=== PATIENT | female | born 1940 | race Caucasian/White ===

== ENCOUNTER 2020-12-04 16:04 | Inpatient (IN) ==
[2020-12-08] MEDS: *HR* OxyCODONE/APAP 10/325 TABLET PO PRN (14:56)
[2020-12-08] MEDS: cephALEXin 500 MG CAPSULE PO SCH ×2 (15:39→19:59)
[2020-12-08] MEDS: Gabapentin 400 MG CAPSULE PO SCH (18:00)
[2020-12-08] MEDS ORDERED: Bisacodyl 10 MG RECTAL SUPPOSITORY RC PRN (18:31)
[2020-12-08] MEDS: Melatonin 3 MG TABLET PO SCH (19:56)
[2020-12-08] MEDS: Lactobacillus 1 EACH CAP.SPRINK PO SCH (19:57)
[2020-12-08] MEDS: Apixaban 5 MG TABLET PO SCH (19:59)
[2020-12-08] MEDS: Sennosides/Docusate Sodium TABLET PO SCH (21:36)
[2020-12-08] MEDS: Budesonide/Formoterol 160/4.5 1 PUFF INH IH SCH (21:40)
[2020-12-09] MEDS: (Ezetimibe 10 MG Tablet) PO SCH (09:34)
[2020-12-09] MEDS: Budesonide/Formoterol 160/4.5 1 PUFF INH IH SCH ×2 (09:55→20:19)
[2020-12-09] MEDS: Lactobacillus 1 EACH CAP.SPRINK PO SCH ×2 (09:58→20:50)
[2020-12-09] MEDS: *HR* SitaGLIPtin 25 MG TABLET PO SCH (09:58)
[2020-12-09] MEDS: Sennosides/Docusate Sodium TABLET PO SCH ×2 (09:58→20:51)
[2020-12-09] MEDS: Gabapentin 400 MG CAPSULE PO SCH ×2 (09:58→19:20)
[2020-12-09] MEDS: Loratadine 10 MG TABLET PO SCH (09:59)
[2020-12-09] MEDS: Furosemide 20 MG TABLET PO SCH (09:59)
[2020-12-09] MEDS: Apixaban 5 MG TABLET PO SCH ×2 (09:59→20:49)
[2020-12-09] MEDS: cephALEXin 500 MG CAPSULE PO SCH ×3 (09:59→20:49)
[2020-12-09] MEDS: *HR* Glimepiride 4 MG TABLET PO SCH (10:01)
[2020-12-09] MEDS: *HR* OxyCODONE/APAP 10/325 TABLET PO PRN ×2 (13:35→20:49)
[2020-12-09] MEDS: Melatonin 3 MG TABLET PO SCH (20:50)
[2020-12-10 07:11] LABS: Hemoglobin 7.5 g/dL (11.5-15.4); Mean Corpuscular Hemoglobin 28.3 pg (28.0-33.3); Mean Corpuscular Volume 94.3 fL (83.0-100.0); Mean Platelet Volume 10.2 fL (9.4-12.4); Platelet Count 267 K/mcL (140-400); Red Blood Count 2.65 M/mcL (3.82-4.97); Red Cell Distribution Width 16.1 % (11.5-14.5); White Blood Count 4.8 K/mcL (4.3-11.1)
[2020-12-10 07:33] LABS: Calcium 8.4 mg/dL (8.6-10.3); Potassium 3.4 mEq/L (3.5-5.1)
[2020-12-10] MEDS: Furosemide 20 MG TABLET PO SCH (07:56)
[2020-12-10] MEDS: Sennosides/Docusate Sodium TABLET PO SCH ×2 (07:56→19:56)
[2020-12-10] MEDS: Gabapentin 400 MG CAPSULE PO SCH ×2 (07:56→16:09)
[2020-12-10] MEDS: Lactobacillus 1 EACH CAP.SPRINK PO SCH ×2 (07:57→19:57)
[2020-12-10] MEDS: Loratadine 10 MG TABLET PO SCH (07:57)
[2020-12-10] MEDS: *HR* Glimepiride 4 MG TABLET PO SCH (07:57)
[2020-12-10] MEDS: Apixaban 5 MG TABLET PO SCH ×2 (07:57→19:57)
[2020-12-10] MEDS: cephALEXin 500 MG CAPSULE PO SCH ×3 (07:57→19:57)
[2020-12-10] MEDS: *HR* SitaGLIPtin 25 MG TABLET PO SCH (07:57)
[2020-12-10] MEDS: (Ezetimibe 10 MG Tablet) PO SCH (07:58)
[2020-12-10] MEDS: *HR* OxyCODONE/APAP 10/325 TABLET PO PRN ×2 (08:02→16:09)
[2020-12-10] MEDS: Budesonide/Formoterol 160/4.5 1 PUFF INH IH SCH ×2 (09:52→21:11)
[2020-12-10] MEDS: Melatonin 3 MG TABLET PO SCH (19:56)
[2020-12-11] MEDS: Furosemide 20 MG TABLET PO SCH (08:10)
[2020-12-11] MEDS: *HR* SitaGLIPtin 25 MG TABLET PO SCH (08:10)
[2020-12-11] MEDS: cephALEXin 500 MG CAPSULE PO SCH ×3 (08:10→20:17)
[2020-12-11] MEDS: Apixaban 5 MG TABLET PO SCH ×2 (08:10→20:16)
[2020-12-11] MEDS: Sennosides/Docusate Sodium TABLET PO SCH ×2 (08:11→20:16)
[2020-12-11] MEDS: *HR* OxyCODONE/APAP 10/325 TABLET PO PRN ×2 (08:12→14:17)
[2020-12-11] MEDS: Gabapentin 400 MG CAPSULE PO SCH ×2 (08:12→17:35)
[2020-12-11] MEDS: Loratadine 10 MG TABLET PO SCH (08:13)
[2020-12-11] MEDS: Lactobacillus 1 EACH CAP.SPRINK PO SCH ×2 (08:13→20:16)
[2020-12-11] MEDS: (Ezetimibe 10 MG Tablet) PO SCH (08:24)
[2020-12-11] MEDS: *HR* Glimepiride 4 MG TABLET PO SCH (08:28)
[2020-12-11] MEDS: Budesonide/Formoterol 160/4.5 1 PUFF INH IH SCH ×2 (10:09→22:32)
[2020-12-11] MEDS: Melatonin 3 MG TABLET PO SCH (20:17)
[2020-12-12] MEDS: *HR* OxyCODONE/APAP 10/325 TABLET PO PRN ×2 (05:26→14:19)
[2020-12-12] MEDS: cephALEXin 500 MG CAPSULE PO SCH ×3 (07:57→19:45)
[2020-12-12] MEDS: Sennosides/Docusate Sodium TABLET PO SCH ×2 (07:57→19:46)
[2020-12-12] MEDS: Lactobacillus 1 EACH CAP.SPRINK PO SCH ×2 (07:57→19:46)
[2020-12-12] MEDS: Furosemide 20 MG TABLET PO SCH (07:58)
[2020-12-12] MEDS: Gabapentin 400 MG CAPSULE PO SCH ×2 (07:59→18:32)
[2020-12-12] MEDS: Apixaban 5 MG TABLET PO SCH ×2 (08:00→19:47)
[2020-12-12] MEDS: Loratadine 10 MG TABLET PO SCH (08:00)
[2020-12-12] MEDS: *HR* SitaGLIPtin 25 MG TABLET PO SCH (08:00)
[2020-12-12] MEDS: *HR* Glimepiride 4 MG TABLET PO SCH (08:06)
[2020-12-12] MEDS: Budesonide/Formoterol 160/4.5 1 PUFF INH IH SCH ×2 (09:59→22:01)
[2020-12-12] MEDS: (Ezetimibe 10 MG Tablet) PO SCH (11:29)
[2020-12-12] MEDS: Melatonin 3 MG TABLET PO SCH (19:45)
[2020-12-13] MEDS: Sennosides/Docusate Sodium TABLET PO SCH ×2 (08:21→20:35)
[2020-12-13] MEDS: Lactobacillus 1 EACH CAP.SPRINK PO SCH ×2 (08:21→20:35)
[2020-12-13] MEDS: Apixaban 5 MG TABLET PO SCH ×2 (08:23→20:34)
[2020-12-13] MEDS: *HR* SitaGLIPtin 25 MG TABLET PO SCH (08:23)
[2020-12-13] MEDS: cephALEXin 500 MG CAPSULE PO SCH ×3 (08:24→20:37)
[2020-12-13] MEDS: Furosemide 20 MG TABLET PO SCH (08:24)
[2020-12-13] MEDS: Loratadine 10 MG TABLET PO SCH (08:25)
[2020-12-13] MEDS: Gabapentin 400 MG CAPSULE PO SCH ×2 (08:25→17:47)
[2020-12-13] MEDS: *HR* Glimepiride 4 MG TABLET PO SCH (08:26)
[2020-12-13] MEDS: (Ezetimibe 10 MG Tablet) PO SCH (08:26)
[2020-12-13] MEDS: *HR* OxyCODONE/APAP 10/325 TABLET PO PRN (08:37)
[2020-12-13 09:15] LABS: Hematocrit 26.1 % (35.3-44.9); Hemoglobin 7.8 g/dL (11.5-15.4); Mean Corpuscular HGB Conc 29.9 g/dL (31.6-35.5); Mean Corpuscular Hemoglobin 28.3 pg (28.0-33.3); Mean Corpuscular Volume 94.6 fL (83.0-100.0); Mean Platelet Volume 9.9 fL (9.4-12.4); Platelet Count 312 K/mcL (140-400); Red Blood Count 2.76 M/mcL (3.82-4.97)
[2020-12-13] MEDS: Budesonide/Formoterol 160/4.5 1 PUFF INH IH SCH ×2 (10:08→21:43)
[2020-12-13] MEDS: Melatonin 3 MG TABLET PO SCH (20:36)
[2020-12-13] MEDS: Acetaminophen 325 MG TABLET PO PRN (21:26)
[2020-12-14] MEDS: Apixaban 5 MG TABLET PO SCH ×2 (09:48→20:12)
[2020-12-14] MEDS: Gabapentin 400 MG CAPSULE PO SCH ×2 (09:48→17:20)
[2020-12-14] MEDS: Furosemide 20 MG TABLET PO SCH (09:50)
[2020-12-14] MEDS: Loratadine 10 MG TABLET PO SCH (09:50)
[2020-12-14] MEDS: Sennosides/Docusate Sodium TABLET PO SCH ×2 (09:50→20:11)
[2020-12-14] MEDS: cephALEXin 500 MG CAPSULE PO SCH ×3 (09:51→20:10)
[2020-12-14] MEDS: *HR* SitaGLIPtin 25 MG TABLET PO SCH (09:51)
[2020-12-14] MEDS: Lactobacillus 1 EACH CAP.SPRINK PO SCH ×2 (09:51→20:13)
[2020-12-14] MEDS: *HR* OxyCODONE/APAP 10/325 TABLET PO PRN ×2 (10:07→20:10)
[2020-12-14] MEDS: Budesonide/Formoterol 160/4.5 1 PUFF INH IH SCH ×2 (10:11→21:53)
[2020-12-14] MEDS: *HR* Glimepiride 4 MG TABLET PO SCH (10:16)
[2020-12-14] MEDS: (Ezetimibe 10 MG Tablet) PO SCH (10:16)
[2020-12-14] MEDS: Melatonin 3 MG TABLET PO SCH (20:11)
[2020-12-15] MEDS: Gabapentin 400 MG CAPSULE PO SCH ×2 (07:59→16:49)
[2020-12-15] MEDS: cephALEXin 500 MG CAPSULE PO SCH ×3 (08:00→21:24)
[2020-12-15] MEDS: Lactobacillus 1 EACH CAP.SPRINK PO SCH ×2 (08:00→21:25)
[2020-12-15] MEDS: Furosemide 20 MG TABLET PO SCH (08:00)
[2020-12-15] MEDS: Loratadine 10 MG TABLET PO SCH (08:00)
[2020-12-15] MEDS: Apixaban 5 MG TABLET PO SCH ×2 (08:00→21:25)
[2020-12-15] MEDS: *HR* SitaGLIPtin 25 MG TABLET PO SCH ×2 (08:00→09:06)
[2020-12-15] MEDS: Sennosides/Docusate Sodium TABLET PO SCH ×2 (08:01→21:24)
[2020-12-15] MEDS: (Ezetimibe 10 MG Tablet) PO SCH (08:04)
[2020-12-15] MEDS: *HR* Glimepiride 4 MG TABLET PO SCH (09:06)
[2020-12-15] MEDS: Budesonide/Formoterol 160/4.5 1 PUFF INH IH SCH ×2 (09:41→20:16)
[2020-12-15] MEDS ORDERED: MOM Conc 10 ML UD.LIQ PO PRN (12:12)
[2020-12-15] MEDS: *HR* OxyCODONE/APAP 10/325 TABLET PO PRN ×2 (14:42→21:23)
[2020-12-15] MEDS: Melatonin 3 MG TABLET PO SCH (21:23)
[2020-12-16] MEDS: Sennosides/Docusate Sodium TABLET PO SCH ×2 (08:21→19:56)
[2020-12-16] MEDS: cephALEXin 500 MG CAPSULE PO SCH ×3 (08:21→19:54)
[2020-12-16] MEDS: Gabapentin 400 MG CAPSULE PO SCH ×2 (08:22→18:14)
[2020-12-16] MEDS: Apixaban 5 MG TABLET PO SCH ×2 (08:22→19:55)
[2020-12-16] MEDS: Loratadine 10 MG TABLET PO SCH (08:22)
[2020-12-16] MEDS: Furosemide 20 MG TABLET PO SCH (08:23)
[2020-12-16] MEDS: Lactobacillus 1 EACH CAP.SPRINK PO SCH ×2 (08:23→19:54)
[2020-12-16] MEDS: *HR* SitaGLIPtin 25 MG TABLET PO SCH (09:59)
[2020-12-16] MEDS: *HR* Glimepiride 4 MG TABLET PO SCH (09:59)
[2020-12-16] MEDS: Acetaminophen 325 MG TABLET PO PRN (10:04)
[2020-12-16] MEDS: (Ezetimibe 10 MG Tablet) PO SCH (10:06)
[2020-12-16] MEDS: Budesonide/Formoterol 160/4.5 1 PUFF INH IH SCH ×2 (10:28→20:28)
[2020-12-16] MEDS: *HR* OxyCODONE/APAP 10/325 TABLET PO PRN ×2 (15:28→21:28)
[2020-12-16] MEDS: Melatonin 3 MG TABLET PO SCH (19:55)
[2020-12-17] MEDS: Sennosides/Docusate Sodium TABLET PO SCH ×2 (08:16→19:57)
[2020-12-17] MEDS: cephALEXin 500 MG CAPSULE PO SCH ×3 (08:17→19:58)
[2020-12-17] MEDS: Apixaban 5 MG TABLET PO SCH ×2 (08:17→19:54)
[2020-12-17] MEDS: *HR* SitaGLIPtin 25 MG TABLET PO SCH (08:17)
[2020-12-17] MEDS: Gabapentin 400 MG CAPSULE PO SCH ×2 (08:17→17:23)
[2020-12-17] MEDS: Loratadine 10 MG TABLET PO SCH (08:18)
[2020-12-17] MEDS: (Ezetimibe 10 MG Tablet) PO SCH (08:19)
[2020-12-17] MEDS: Lactobacillus 1 EACH CAP.SPRINK PO SCH ×2 (08:19→19:58)
[2020-12-17] MEDS: Furosemide 20 MG TABLET PO SCH (08:20)
[2020-12-17] MEDS: Budesonide/Formoterol 160/4.5 1 PUFF INH IH SCH ×2 (12:30→23:04)
[2020-12-17] MEDS: *HR* OxyCODONE/APAP 10/325 TABLET PO PRN (16:37)
[2020-12-17] MEDS: *HR* Glimepiride 4 MG TABLET PO SCH (18:11)
[2020-12-17] MEDS: Melatonin 3 MG TABLET PO SCH (19:56)
[2020-12-18 07:27] LABS: Hematocrit 27.5 % (35.3-44.9); Hemoglobin 8.1 g/dL (11.5-15.4); Mean Corpuscular HGB Conc 29.5 g/dL (31.6-35.5); Mean Corpuscular Hemoglobin 28.5 pg (28.0-33.3); Mean Corpuscular Volume 96.8 fL (83.0-100.0); Mean Platelet Volume 9.5 fL (9.4-12.4); Platelet Count 263 K/mcL (140-400); Red Blood Count 2.84 M/mcL (3.82-4.97); Red Cell Distribution Width 16.3 % (11.5-14.5); White Blood Count 3.4 K/mcL (4.3-11.1)
[2020-12-18 07:49] LABS: Calcium 8.3 mg/dL (8.6-10.3); Potassium 4.1 mEq/L (3.5-5.1)
[2020-12-18] MEDS: Sennosides/Docusate Sodium TABLET PO SCH ×2 (08:10→19:52)
[2020-12-18] MEDS: Gabapentin 400 MG CAPSULE PO SCH ×2 (08:10→17:15)
[2020-12-18] MEDS: Lactobacillus 1 EACH CAP.SPRINK PO SCH ×2 (08:10→19:51)
[2020-12-18] MEDS: *HR* SitaGLIPtin 25 MG TABLET PO SCH (08:11)
[2020-12-18] MEDS: Apixaban 5 MG TABLET PO SCH ×2 (08:11→19:51)
[2020-12-18] MEDS: Loratadine 10 MG TABLET PO SCH (08:12)
[2020-12-18] MEDS: cephALEXin 500 MG CAPSULE PO SCH ×3 (08:12→19:51)
[2020-12-18] MEDS: Furosemide 20 MG TABLET PO SCH (08:12)
[2020-12-18] MEDS: (Ezetimibe 10 MG Tablet) PO SCH (08:14)
[2020-12-18] MEDS: *HR* OxyCODONE/APAP 10/325 TABLET PO PRN ×3 (08:19→22:04)
[2020-12-18] MEDS: Budesonide/Formoterol 160/4.5 1 PUFF INH IH SCH ×2 (09:55→22:19)
[2020-12-18] MEDS: Melatonin 3 MG TABLET PO SCH (19:52)
[2020-12-19] MEDS: Apixaban 5 MG TABLET PO SCH ×2 (08:33→19:46)
[2020-12-19] MEDS: Gabapentin 400 MG CAPSULE PO SCH ×2 (08:33→17:21)
[2020-12-19] MEDS: cephALEXin 500 MG CAPSULE PO SCH ×3 (08:33→19:47)
[2020-12-19] MEDS: Furosemide 20 MG TABLET PO SCH (08:34)
[2020-12-19] MEDS: Lactobacillus 1 EACH CAP.SPRINK PO SCH ×2 (08:34→19:47)
[2020-12-19] MEDS: Sennosides/Docusate Sodium TABLET PO SCH ×2 (08:34→19:47)
[2020-12-19] MEDS: *HR* SitaGLIPtin 25 MG TABLET PO SCH (08:34)
[2020-12-19] MEDS: Loratadine 10 MG TABLET PO SCH (08:35)
[2020-12-19] MEDS: (Ezetimibe 10 MG Tablet) PO SCH (08:35)
[2020-12-19] MEDS: *HR* OxyCODONE/APAP 10/325 TABLET PO PRN ×2 (08:48→19:48)
[2020-12-19] MEDS: Budesonide/Formoterol 160/4.5 1 PUFF INH IH SCH ×2 (10:06→20:26)
[2020-12-19] MEDS: Acetaminophen 325 MG TABLET PO PRN (12:47)
[2020-12-19] MEDS: Melatonin 3 MG TABLET PO SCH (19:47)
[2020-12-20] MEDS: Sennosides/Docusate Sodium TABLET PO SCH ×2 (08:54→19:59)
[2020-12-20] MEDS: Gabapentin 400 MG CAPSULE PO SCH ×2 (08:55→17:05)
[2020-12-20] MEDS: Apixaban 5 MG TABLET PO SCH ×2 (08:55→19:59)
[2020-12-20] MEDS: *HR* SitaGLIPtin 25 MG TABLET PO SCH (08:56)
[2020-12-20] MEDS: Loratadine 10 MG TABLET PO SCH (08:56)
[2020-12-20] MEDS: cephALEXin 500 MG CAPSULE PO SCH ×3 (08:56→19:58)
[2020-12-20] MEDS: Lactobacillus 1 EACH CAP.SPRINK PO SCH ×2 (08:56→19:58)
[2020-12-20] MEDS: Furosemide 20 MG TABLET PO SCH (08:58)
[2020-12-20] MEDS: (Ezetimibe 10 MG Tablet) PO SCH (09:00)
[2020-12-20] MEDS: *HR* OxyCODONE/APAP 10/325 TABLET PO PRN ×2 (09:03→18:47)
[2020-12-20] MEDS: Budesonide/Formoterol 160/4.5 1 PUFF INH IH SCH ×2 (10:21→20:43)
[2020-12-20] MEDS: Melatonin 3 MG TABLET PO SCH (19:58)
[2020-12-21] MEDS: Apixaban 5 MG TABLET PO SCH ×2 (08:39→19:33)
[2020-12-21] MEDS: cephALEXin 500 MG CAPSULE PO SCH ×3 (08:39→19:33)
[2020-12-21] MEDS: Lactobacillus 1 EACH CAP.SPRINK PO SCH ×2 (08:39→19:33)
[2020-12-21] MEDS: Gabapentin 400 MG CAPSULE PO SCH ×2 (08:39→17:01)
[2020-12-21] MEDS: Loratadine 10 MG TABLET PO SCH (08:39)
[2020-12-21] MEDS: *HR* SitaGLIPtin 25 MG TABLET PO SCH (08:39)
[2020-12-21] MEDS: Furosemide 20 MG TABLET PO SCH (08:40)
[2020-12-21] MEDS: Sennosides/Docusate Sodium TABLET PO SCH ×2 (08:40→19:33)
[2020-12-21] MEDS: (Ezetimibe 10 MG Tablet) PO SCH (08:40)
[2020-12-21] MEDS: *HR* OxyCODONE/APAP 10/325 TABLET PO PRN ×3 (08:47→22:15)
[2020-12-21] MEDS: Budesonide/Formoterol 160/4.5 1 PUFF INH IH SCH ×2 (10:25→20:36)
[2020-12-21] MEDS: Melatonin 3 MG TABLET PO SCH (19:33)
[2020-12-22] MEDS: Loratadine 10 MG TABLET PO SCH (08:55)
[2020-12-22] MEDS: Apixaban 5 MG TABLET PO SCH ×2 (08:56→20:31)
[2020-12-22] MEDS: *HR* OxyCODONE/APAP 10/325 TABLET PO PRN ×2 (08:56→15:22)
[2020-12-22] MEDS: *HR* SitaGLIPtin 25 MG TABLET PO SCH (08:56)
[2020-12-22] MEDS: Sennosides/Docusate Sodium TABLET PO SCH ×2 (08:56→20:29)
[2020-12-22] MEDS: Furosemide 20 MG TABLET PO SCH (08:57)
[2020-12-22] MEDS: Gabapentin 400 MG CAPSULE PO SCH ×2 (08:57→17:10)
[2020-12-22] MEDS: cephALEXin 500 MG CAPSULE PO SCH ×2 (08:58→15:22)
[2020-12-22] MEDS: Lactobacillus 1 EACH CAP.SPRINK PO SCH ×2 (08:58→20:30)
[2020-12-22] MEDS: (Ezetimibe 10 MG Tablet) PO SCH (08:59)
[2020-12-22] MEDS: Budesonide/Formoterol 160/4.5 1 PUFF INH IH SCH ×2 (10:55→21:47)
[2020-12-22] MEDS: Melatonin 3 MG TABLET PO SCH (20:30)
[2020-12-23 07:27] LABS: Eosinophils # 0.2 K/mcL (0.0-0.6); Eosinophils % 5.3 %; Hematocrit 28.7 % (35.3-44.9); Hemoglobin 8.4 g/dL (11.5-15.4); Immature Granulocytes % 0.3 % (0-4); Lymphocytes # 0.7 K/mcL (0.6-4.6); Lymphocytes % 23.5 %; Mean Corpuscular HGB Conc 29.3 g/dL (31.6-35.5); Mean Corpuscular Hemoglobin 28.5 pg (28.0-33.3); Mean Corpuscular Volume 97.3 fL (83.0-100.0); Mean Platelet Volume 10.5 fL (9.4-12.4); Monocytes # 0.3 K/mcL (0.0-1.3); Monocytes % 9.3 %; Neutrophils # 1.8 K/mcL (1.6-8.9); Platelet Count 214 K/mcL (140-400); Red Blood Count 2.95 M/mcL (3.82-4.97); Red Cell Distribution Width 17.7 % (11.5-14.5); Segmented Neutrophils % 60.6 %
[2020-12-23] MEDS: Lactobacillus 1 EACH CAP.SPRINK PO SCH ×2 (09:03→19:56)
[2020-12-23] MEDS: Loratadine 10 MG TABLET PO SCH (09:03)
[2020-12-23] MEDS: Sennosides/Docusate Sodium TABLET PO SCH ×2 (09:04→19:56)
[2020-12-23] MEDS: Gabapentin 400 MG CAPSULE PO SCH ×2 (09:04→17:22)
[2020-12-23] MEDS: *HR* SitaGLIPtin 25 MG TABLET PO SCH (09:04)
[2020-12-23] MEDS: (Ezetimibe 10 MG Tablet) PO SCH (09:05)
[2020-12-23] MEDS: Furosemide 20 MG TABLET PO SCH (09:05)
[2020-12-23] MEDS: Apixaban 5 MG TABLET PO SCH ×2 (09:05→19:56)
[2020-12-23] MEDS: *HR* OxyCODONE/APAP 10/325 TABLET PO PRN ×2 (09:05→19:55)
[2020-12-23] MEDS: Budesonide/Formoterol 160/4.5 1 PUFF INH IH SCH ×2 (09:53→21:27)
[2020-12-23] MEDS: Melatonin 3 MG TABLET PO SCH (19:56)
[2020-12-24] MEDS: Sennosides/Docusate Sodium TABLET PO SCH ×2 (08:24→20:55)
[2020-12-24] MEDS: Lactobacillus 1 EACH CAP.SPRINK PO SCH ×2 (08:24→20:55)
[2020-12-24] MEDS: Furosemide 20 MG TABLET PO SCH (08:26)
[2020-12-24] MEDS: Gabapentin 400 MG CAPSULE PO SCH ×2 (08:26→17:12)
[2020-12-24] MEDS: *HR* SitaGLIPtin 25 MG TABLET PO SCH (08:26)
[2020-12-24] MEDS: Apixaban 5 MG TABLET PO SCH ×2 (08:27→20:57)
[2020-12-24] MEDS: Loratadine 10 MG TABLET PO SCH (08:27)
[2020-12-24] MEDS: (Ezetimibe 10 MG Tablet) PO SCH (08:28)
[2020-12-24] MEDS: *HR* OxyCODONE/APAP 10/325 TABLET PO PRN ×3 (08:38→20:56)
[2020-12-24] MEDS: Budesonide/Formoterol 160/4.5 1 PUFF INH IH SCH ×2 (09:48→20:50)
[2020-12-24] MEDS: Acetaminophen 325 MG TABLET PO PRN (17:13)
[2020-12-24] MEDS: Melatonin 3 MG TABLET PO SCH (20:56)
[2020-12-25] MEDS: *HR* SitaGLIPtin 25 MG TABLET PO SCH (08:01)
[2020-12-25] MEDS: Loratadine 10 MG TABLET PO SCH (08:01)
[2020-12-25] MEDS: Lactobacillus 1 EACH CAP.SPRINK PO SCH ×2 (08:01→19:42)
[2020-12-25] MEDS: Furosemide 20 MG TABLET PO SCH (08:01)
[2020-12-25] MEDS: Sennosides/Docusate Sodium TABLET PO SCH ×2 (08:01→19:43)
[2020-12-25] MEDS: Apixaban 5 MG TABLET PO SCH ×2 (08:02→19:43)
[2020-12-25] MEDS: Gabapentin 400 MG CAPSULE PO SCH ×2 (08:03→17:17)
[2020-12-25] MEDS: (Ezetimibe 10 MG Tablet) PO SCH (08:10)
[2020-12-25] MEDS: Budesonide/Formoterol 160/4.5 1 PUFF INH IH SCH ×2 (09:38→21:19)
[2020-12-25] MEDS: *HR* OxyCODONE/APAP 10/325 TABLET PO PRN ×2 (10:12→19:42)
[2020-12-25] MEDS: Melatonin 3 MG TABLET PO SCH (19:43)
[2020-12-26] MEDS: *HR* OxyCODONE/APAP 10/325 TABLET PO PRN ×2 (07:24→18:40)
[2020-12-26] MEDS: Lactobacillus 1 EACH CAP.SPRINK PO SCH ×2 (09:24→20:48)
[2020-12-26] MEDS: Sennosides/Docusate Sodium TABLET PO SCH ×2 (09:25→20:48)
[2020-12-26] MEDS: Gabapentin 400 MG CAPSULE PO SCH ×2 (09:25→18:40)
[2020-12-26] MEDS: *HR* SitaGLIPtin 25 MG TABLET PO SCH (09:25)
[2020-12-26] MEDS: Loratadine 10 MG TABLET PO SCH (09:26)
[2020-12-26] MEDS: Apixaban 5 MG TABLET PO SCH ×2 (09:26→20:49)
[2020-12-26] MEDS: Furosemide 20 MG TABLET PO SCH (09:26)
[2020-12-26] MEDS: (Ezetimibe 10 MG Tablet) PO SCH (09:27)
[2020-12-26] MEDS: Budesonide/Formoterol 160/4.5 1 PUFF INH IH SCH ×2 (09:55→21:36)
[2020-12-26] MEDS: Melatonin 3 MG TABLET PO SCH (20:45)
[2020-12-27] MEDS: *HR* OxyCODONE/APAP 10/325 TABLET PO PRN ×2 (02:09→17:59)
[2020-12-27 08:25] LABS: Basophils % 0.8 %; Eosinophils # 0.2 K/mcL (0.0-0.6); Eosinophils % 6.2 %; Hematocrit 29.1 % (35.3-44.9); Hemoglobin 8.5 g/dL (11.5-15.4); Immature Granulocytes % 0.4 % (0-4); Lymphocytes # 0.9 K/mcL (0.6-4.6); Lymphocytes % 32.9 %; Mean Corpuscular HGB Conc 29.2 g/dL (31.6-35.5); Mean Corpuscular Volume 99.3 fL (83.0-100.0); Mean Platelet Volume 10.2 fL (9.4-12.4); Monocytes # 0.2 K/mcL (0.0-1.3); Monocytes % 9.3 %; Neutrophils # 1.3 K/mcL (1.6-8.9); Platelet Count 180 K/mcL (140-400); Red Blood Count 2.93 M/mcL (3.82-4.97); Segmented Neutrophils % 50.4 %; White Blood Count 2.6 K/mcL (4.3-11.1)
[2020-12-27 08:35] LABS: BUN/Creatinine Ratio 9 (6-26); Blood Urea Nitrogen 9 mg/dL (8-23); Calcium 8.4 mg/dL (8.6-10.3); Carbon Dioxide 31 mEq/L (23-29); Chloride 105 mEq/L (98-107); Glucose 96 mg/dL (70-105); Osmolality,Calculated 285 (280-300); Potassium 4.2 mEq/L (3.5-5.1); Sodium 138 mEq/L (136-145); eGFR For African Americans > 60 (> 60); eGFR For Non-African Americans 51 (> 60)
[2020-12-27] MEDS: Gabapentin 400 MG CAPSULE PO SCH ×2 (09:35→17:58)
[2020-12-27] MEDS: Apixaban 5 MG TABLET PO SCH ×2 (09:36→20:21)
[2020-12-27] MEDS: Lactobacillus 1 EACH CAP.SPRINK PO SCH ×2 (09:36→20:20)
[2020-12-27] MEDS: Sennosides/Docusate Sodium TABLET PO SCH ×2 (09:36→20:20)
[2020-12-27] MEDS: Loratadine 10 MG TABLET PO SCH (09:37)
[2020-12-27] MEDS: Furosemide 20 MG TABLET PO SCH (09:37)
[2020-12-27] MEDS: *HR* SitaGLIPtin 25 MG TABLET PO SCH (09:37)
[2020-12-27] MEDS: (Ezetimibe 10 MG Tablet) PO SCH (09:37)
[2020-12-27] MEDS: Budesonide/Formoterol 160/4.5 1 PUFF INH IH SCH ×2 (10:33→22:11)
[2020-12-27] MEDS: Melatonin 3 MG TABLET PO SCH (20:21)
[2020-12-28] MEDS: Furosemide 20 MG TABLET PO SCH (07:42)
[2020-12-28] MEDS: Apixaban 5 MG TABLET PO SCH ×2 (07:42→20:44)
[2020-12-28] MEDS: Sennosides/Docusate Sodium TABLET PO SCH ×2 (07:42→20:45)
[2020-12-28] MEDS: Lactobacillus 1 EACH CAP.SPRINK PO SCH ×2 (07:42→20:44)
[2020-12-28] MEDS: Loratadine 10 MG TABLET PO SCH (07:42)
[2020-12-28] MEDS: *HR* SitaGLIPtin 25 MG TABLET PO SCH (07:45)
[2020-12-28] MEDS: Gabapentin 400 MG CAPSULE PO SCH ×2 (07:45→16:53)
[2020-12-28] MEDS: (Ezetimibe 10 MG Tablet) PO SCH (07:46)
[2020-12-28] MEDS: Budesonide/Formoterol 160/4.5 1 PUFF INH IH SCH ×2 (10:04→22:01)
[2020-12-28] MEDS: *HR* OxyCODONE/APAP 10/325 TABLET PO PRN ×2 (10:07→20:46)
[2020-12-28 19:10] LABS: Bilirubin,Urine Negative (Negative); Blood,Urine Negative (Negative); Color,Urine Yellow (Yellow); Glucose,Urine (UA) 100 mg/dL (Normal); Ketones,Urine Negative (Negative); Leukocyte Esterase,Urine Negative (Negative); Nitrite,Urine Negative (Negative); Protein,Urine Negative (Neg-Trace); Urobilinogen,Urine Normal (Normal)
[2020-12-28 19:14] LABS: Clarity,Urine Hazy (Clear)
[2020-12-28 19:17] LABS: Squamous Epithelial Cell,Urine Moderate per hpf (None-Few)
[2020-12-28 19:18] LABS: Bacteria,Urine Few per hpf (None-Few)
[2020-12-28] MEDS: Melatonin 3 MG TABLET PO SCH (20:45)
[2020-12-29] MEDS: Apixaban 5 MG TABLET PO SCH ×2 (08:15→20:23)
[2020-12-29] MEDS: *HR* SitaGLIPtin 25 MG TABLET PO SCH (08:15)
[2020-12-29] MEDS: Gabapentin 400 MG CAPSULE PO SCH ×2 (08:15→17:34)
[2020-12-29] MEDS: Lactobacillus 1 EACH CAP.SPRINK PO SCH ×2 (08:15→20:23)
[2020-12-29] MEDS: Sennosides/Docusate Sodium TABLET PO SCH ×2 (08:15→20:33)
[2020-12-29] MEDS: *HR* OxyCODONE/APAP 10/325 TABLET PO PRN ×2 (08:15→20:23)
[2020-12-29] MEDS: Loratadine 10 MG TABLET PO SCH (08:16)
[2020-12-29] MEDS: (Ezetimibe 10 MG Tablet) PO SCH (08:16)
[2020-12-29] MEDS: Furosemide 20 MG TABLET PO SCH (08:16)
[2020-12-29] MEDS: Budesonide/Formoterol 160/4.5 1 PUFF INH IH SCH ×2 (10:18→21:02)
[2020-12-29] MEDS: Melatonin 3 MG TABLET PO SCH (20:22)
[2020-12-29] MEDS: Acetaminophen 325 MG TABLET PO PRN (22:06)
[2020-12-30] MEDS: *HR* OxyCODONE/APAP 10/325 TABLET PO PRN ×3 (03:42→21:59)
[2020-12-30] MEDS: Gabapentin 400 MG CAPSULE PO SCH ×2 (09:38→17:02)
[2020-12-30] MEDS: Lactobacillus 1 EACH CAP.SPRINK PO SCH ×2 (09:39→21:57)
[2020-12-30] MEDS: Sennosides/Docusate Sodium TABLET PO SCH ×2 (09:39→22:05)
[2020-12-30] MEDS: Loratadine 10 MG TABLET PO SCH (09:39)
[2020-12-30] MEDS: *HR* SitaGLIPtin 25 MG TABLET PO SCH (09:39)
[2020-12-30] MEDS: (Ezetimibe 10 MG Tablet) PO SCH (09:40)
[2020-12-30] MEDS: Apixaban 5 MG TABLET PO SCH ×2 (09:40→21:59)
[2020-12-30] MEDS: Furosemide 20 MG TABLET PO SCH (09:40)
[2020-12-30 10:08] LABS: Basophils % 1.1 %; Eosinophils # 0.2 K/mcL (0.0-0.6); Eosinophils % 8.1 %; Hematocrit 32.7 % (35.3-44.9); Hemoglobin 9.6 g/dL (11.5-15.4); Immature Granulocytes % 0.4 % (0-4); Lymphocytes # 0.6 K/mcL (0.6-4.6); Mean Corpuscular HGB Conc 29.4 g/dL (31.6-35.5); Mean Corpuscular Hemoglobin 29.1 pg (28.0-33.3); Mean Corpuscular Volume 99.1 fL (83.0-100.0); Mean Platelet Volume 9.7 fL (9.4-12.4); Monocytes # 0.2 K/mcL (0.0-1.3); Monocytes % 8.9 %; Neutrophils # 1.6 K/mcL (1.6-8.9); Platelet Count 188 K/mcL (140-400); Red Cell Distribution Width 17.8 % (11.5-14.5); Segmented Neutrophils % 58.5 %; White Blood Count 2.7 K/mcL (4.3-11.1)
[2020-12-30] MEDS: Budesonide/Formoterol 160/4.5 1 PUFF INH IH SCH ×2 (10:24→20:54)
[2020-12-30 10:52] LABS: BUN/Creatinine Ratio 8 (6-26); Blood Urea Nitrogen 8 mg/dL (8-23); Calcium 8.6 mg/dL (8.6-10.3); Carbon Dioxide 33 mEq/L (23-29); Chloride 101 mEq/L (98-107); Glucose 209 mg/dL (70-105); Osmolality,Calculated 290 (280-300); Potassium 4.1 mEq/L (3.5-5.1); Sodium 138 mEq/L (136-145); eGFR For African Americans > 60 (> 60); eGFR For Non-African Americans 53 (> 60)
[2020-12-30] MEDS ORDERED: levoFLOXacin 750 MG TABLET PO SCH (11:00)
[2020-12-30] MEDS: Melatonin 3 MG TABLET PO SCH (22:00)
[2020-12-31] MEDS: Acetaminophen 325 MG TABLET PO PRN ×2 (01:04→11:49)
[2020-12-31] MEDS ORDERED: *HR* LORazepam 0.5 MG TABLET PO ONE (02:39)
[2020-12-31] MEDS: *HR* SitaGLIPtin 25 MG TABLET PO SCH (07:54)
[2020-12-31] MEDS: Gabapentin 400 MG CAPSULE PO SCH ×2 (07:55→16:48)
[2020-12-31] MEDS: Apixaban 5 MG TABLET PO SCH ×2 (07:57→22:12)
[2020-12-31] MEDS: Furosemide 20 MG TABLET PO SCH (07:57)
[2020-12-31] MEDS: Loratadine 10 MG TABLET PO SCH (07:57)
[2020-12-31] MEDS: Sennosides/Docusate Sodium TABLET PO SCH ×2 (07:58→22:10)
[2020-12-31] MEDS: Lactobacillus 1 EACH CAP.SPRINK PO SCH ×2 (07:58→22:10)
[2020-12-31] MEDS: (Ezetimibe 10 MG Tablet) PO SCH (07:59)
[2020-12-31] MEDS: Budesonide/Formoterol 160/4.5 1 PUFF INH IH SCH ×2 (09:38→21:59)
[2020-12-31 18:34] VITALS: TEMP 98.1
[2020-12-31] MEDS: *HR* OxyCODONE/APAP 10/325 TABLET PO PRN (22:11)
[2020-12-31] MEDS: Melatonin 3 MG TABLET PO SCH (22:12)
[2021-01-01 06:31] VITALS: BP 134/76; PULSE 79
[2021-01-01] MEDS: *HR* SitaGLIPtin 25 MG TABLET PO SCH (08:23)
[2021-01-01] MEDS: Sennosides/Docusate Sodium TABLET PO SCH (08:24)
[2021-01-01] MEDS: Gabapentin 400 MG CAPSULE PO SCH (08:24)
[2021-01-01] MEDS: Furosemide 20 MG TABLET PO SCH (08:24)
[2021-01-01] MEDS: Apixaban 5 MG TABLET PO SCH (08:24)
[2021-01-01] MEDS: Lactobacillus 1 EACH CAP.SPRINK PO SCH (08:24)
[2021-01-01] MEDS: Loratadine 10 MG TABLET PO SCH (08:24)
[2021-01-01] MEDS: *HR* OxyCODONE/APAP 10/325 TABLET PO PRN (08:29)
[2021-01-01] MEDS: (Ezetimibe 10 MG Tablet) PO SCH (09:34)
[2021-01-01] MEDS: Budesonide/Formoterol 160/4.5 1 PUFF INH IH SCH (10:35)
[2021-01-01 14:50] VITALS: RESP 16; O2SAT 96
== END 2021-01-01 16:00 | DRG 560 ==
LOC: INPPIK 12-08 13:10
PROVIDERS: ADMIT Family Medicine; ATTEND Family Medicine